=== PATIENT | male | born 1950 | race Caucasian/White ===

== ENCOUNTER → 2017-04-12 | Day surgery (SDC) | payer MEDICARE ==
[~2017-04-12] VITALS: Ht 180.3 cm; Wt 97.5 kg
[~2017-04-12] MED LIST: ACETAMINOPHEN 1000 MG/100 ML 100 ML IV ONE; BACITRACIN TOP OINT 15 GM TUBE ONE; BUPIVACAINE/EPINEPHRINE 0.25% 50 ML VIAL ONE; CHLORHEXIDINE GLUCONATE 2 % 1 PACK (2 CLOTHS) TOPICAL PRN; FAMOTIDINE 20 MG/2 ML VIAL ONE; LACTATED RINGER'S 1000 ML INJ 1,000 ML ONE; LACTATED RINGER'S 1000 ML IV PRN; METO1TAB42 PO; METOPROLOL TARTRATE 25 MG TAB PO PRN; MIDAZOLAM HCL 2 MG/2 ML VIAL ONE; POVIDONE IODINE 5% (ANTISEPSIS KIT) 4 APPLICATIONS EACH NARE PRN; SODIUM CHLORID 0.9% 500 ML IV PRN; SODIUM CHLORIDE 0.9% INJ 100 ML ONE; ceFAZolin 1,000 MG/NS 100 ML IV SCH; ceFAZolin INJ 1,000 MG VIAL ONE
[2017-04-12 12:47] LABS: HEMATOCRIT 43.3 % (39.0-51.0); HEMOGLOBIN 14.3 GM/DL (13.0-17.0); MEAN CELL VOLUME 92.4 FL (80.0-100.0); MEAN CORPUSCULAR HEMOGLOBIN 30.5 PG (27.0-34.0); PLATELET COUNT 235 TH/MM3 (150-450); RED BLOOD COUNT 4.69 MIL/MM3 (4.50-5.90); RED CELL DISTRIBUTION WIDTH 12.6 % (11.6-17.2); WHITE BLOOD COUNT 8.9 TH/MM3 (4.0-11.0)
[2017-04-12 16:40] VITALS: PULSE 91
[2017-04-12 17:10] VITALS: TEMP 98.2
[2017-04-12 17:52] VITALS: BP 120/80; PULSE 75; RESP 16; O2SAT 95
--- NOTE | 2017-04-13 16:50 | PD.OP ---
Operative Report Date of Surgery: Apr 12, 2017 Preoperative Diagnosis: (1) Squamous cell carcinoma, leg Postoperative Diagnosis: (1) Squamous cell carcinoma, leg Procedure: Wide local excision of left medial leg squamous cell carcinoma, 3.4 cm (18207) Complex wound closure of left medial leg wound, over 7.5 cm (78589, [id number]) Surgeon: Dameon tAkinson Repair Operator(s): . Operation and Findings: This is a 66-year-old male who presented to clinic with biopsy-proven left medial lower leg squamous cell carcinoma. Risks benefits and alternative treatments were discussed. All questions were answered. The patient expressed understanding. The patient elected to assume the risks of wide local excision of the above lesion as well as complex wound closure should it be deemed safe to close the wound without undue tension. If this was not the case the patient expressed understanding that the closure would be staged and would occur at a second surgery following negative permanent pathology. Informed consent was obtained. Surgical site was marked in the preoperative holding bay. The patient was given antibiotics coal or ore controller to the operating room. The patient was taken to the operating room. All pressure points were padded. A surgical timeout was performed. After the smooth induction of general anesthesia, surgical site was instilled with quarter percent Marcaine with epinephrine. The surgical site was prepped and draped in the usual sterile fashion. The lesion was excised with 1 cm margins circumferentially, leaving a wound roughly 3.4 cm in diameter. The specimen was marked for orientation and sent for frozen and permanent pathology. Hemostasis was ensured. Frozen margins were deemed negative. The wound was widely undermined circumferentially using blunt dissection, preserving adequate skin flap thickness. The edges of the wound were checked for tension using double opposing double hooks placed at the skin edges, simulating reapproximation. After several iterations, sufficient undermining was performed to allow for closure without undue tension. Hemostasis was obtained with the bipolar cautery as necessary. The central aspect of the incision was closed with a 2-0 nylon in horizontal mattress fashion. Following this the proximal and distal standing cone deformities were excised. Hemostasis was again ensured. The proximal and distalmost aspects of the incision were closed with interrupted 3-0 nylon suture vertical mattress fashion. As the closure advanced towards the center of the wound, significant tension had been released. The 2-0 nylon suture was now able to be cut. The edges of the wound were easily closed with additional interrupted 3-0 nylon sutures in a vertical mattress fashion. The surgical site was cleaned. Surgical site was dressed with bacitracin Xeroform gauze dry gauze soft roll and an Alexey wrap placed from the metatarsal heads to the mid calf. The patient was awoken from anesthesia and arrived stable and doing well to the PACU. All needle sponge and instrument counts were correct 2 Dameon Atkinson MD Apr 13, 2017 16:50
--- NOTE | 2017-04-13 21:48 | EKG ---
Date Performed: 04/12/2017 Time Performed: 12:46:12 PTAGE: 66 years EKG: Sinus rhythm VOLTAGE CRITERIA FOR LVH ABNORMAL ECG NO PREVIOUS TRACING DOCTOR: Eduardo Bran Interpretating Date/Time 04/13/2017 21:46:45
== END | disposition home or self-care (01) ==
LOC: PHSDC 11:52
PROVIDERS: ATTEND Student in an Organized Health Care Education/Training Program
DX: C44.729 Squamous cell carcinoma of skin of left lower limb, including hip (principal); I10 Essential (primary) hypertension
CPT/HCPCS: 00400; 11604; 13121; 13122; 36415; 85027; 88305; 88331; 93005; J0131; J0690; J2250; J3010; J7120